=== PATIENT | male | born 1995 | race Caucasian/White ===

== ENCOUNTER 2017-03-14 02:01 | Emergency (ER) | payer SELFPAY ==
[~2017-03-14] VITALS: Ht 180.3 cm; Wt 92.1 kg
[~2017-03-14 02:01] MED LIST: HYDROCODON-ACE1 EAC7 PO; OXYCODONE-ACET1 EACH PO
[2017-03-14 02:50] VITALS: BP 128/84
== END 2017-03-14 02:50 | disposition home or self-care (01) ==
LOC: EME 02:01
DX: F10.129 Alcohol abuse with intoxication, unspecified (principal); F12.10 Cannabis abuse, uncomplicated; R00.2 Palpitations
CPT/HCPCS: 93005; 99281; 99284

== ENCOUNTER 2017-09-26 18:44 | Emergency (ER) | payer SELFPAY ==
[~2017-09-26] VITALS: Ht 180.3 cm; Wt 109.8 kg
[2017-09-26] MEDS ORDERED: AMOXICILLIN500 M1 PO (19:12)
[2017-09-26 19:27] VITALS: BP 129/92
== END 2017-09-26 19:28 | disposition home or self-care (01) ==
LOC: EME 18:44
DX: J02.0 Streptococcal pharyngitis (principal); F17.200 Nicotine dependence, unspecified, uncomplicated
CPT/HCPCS: 99281; 99284

== ENCOUNTER 2017-11-13 22:06 | Emergency (ER) | payer OTHER ==
[~2017-11-13] VITALS: Ht 180.3 cm; Wt 105.1 kg
[~2017-11-13 22:06] MED LIST changes: +AMOXICILLIN500 M1 PO
[2017-11-13 22:42] LABS: BASOPHIL (%) 0.4 % (0-1); BASOPHIL COUNT 0.1 K/uL (0-0.1); EOSINOPHIL (%) 0.2 % (0-5); HEMATOCRIT 49.9 % (38.0-50.0); HEMOGLOBIN 17.6 G/DL (12.5-16.6); IMMATURE GRANULOCYTE (%) 0.4 % (0.0-0.7); LYMPHOCYTE (%) 16.6 % (15-42); LYMPHOCYTE COUNT 2.7 K/uL (1.0-2.8); MCH 29.9 PG (29.0-34.0); MCHC 35.3 G/DL (30.0-36.0); MCV 84.9 FL (86-99); MONOCYTE (%) 3.9 % (3-12); MONOCYTE COUNT 0.6 K/uL (0-0.8); NEUTROPHIL (%) 78.5 % (45-76); NEUTROPHIL COUNT 12.6 K/uL (1.8-6.4); PLATELET COUNT 220 K/uL (156-360); RBC DIS.WIDTH-CV 13.4 % (11.8-14.6); RBC DIS.WIDTH-SD 41.8 % (39-53); RED BLOOD COUNT 5.88 M/uL (4.00-5.50); WHITE BLOOD COUNT 16.1 K/uL (4.1-10.2)
[2017-11-13 22:52] LABS: AMPHETAMINE NEGATIVE (500 ng/mL); BARBITURATES NEGATIVE (200 ng/mL); BENZODIAZEPINES NEGATIVE (150 ng/mL); BUPRENORPHINE NEGATIVE (10 ng/mL); COCAINE NEGATIVE (150 ng/mL); METHADONE NEGATIVE (200 ng/mL); METHAMPHETAMINE NEGATIVE (500 ng/mL); OPIATES (MORPHINE) NEGATIVE (100 ng/mL); OXYCODONE NEGATIVE (100 ng/mL); PHENCYCLIDINE NEGATIVE (25 ng/mL); PROPOXYPHENE NEGATIVE (300 ng/mL); THC CANNABINOIDS NEGATIVE (50 ng/mL); TRICYCLIC ANTIDEPRESSANTS NEGATIVE (300 ng/mL)
[2017-11-13 22:57] LABS: ALBUMIN 5.2 g/dL (3.2-4.8); CHLORIDE 105 mEq/L (99-109); POTASSIUM 4.2 mEq/L (3.7-5.4); SODIUM 139 mEq/L (136-147)
[2017-11-13 22:59] LABS: GLUCOSE 104 mg/dL (70-99)
[2017-11-13 23:01] LABS: TOTAL BILIRUBIN 0.5 mg/dL (0.0-1.0)
[2017-11-13 23:02] LABS: SERUM ETHYL ALCOHOL 35 mg/dL
[2017-11-13 23:03] LABS: ALKALINE PHOSPHATASE 83 IU/L (3-129); CREATININE 1.1 mg/dL (0.6-1.3); GFR ESTIMATE (CALCULATED) > 59 mL/min/ (58.99-99999)
[2017-11-13 23:04] LABS: AST (GOT) 29 IU/L (2-34); UREA NITROGEN (BUN) 14 mg/dL (9-23)
[2017-11-13 23:06] LABS: ALT (GPT) 66 IU/L (3-49)
[2017-11-13 23:58] VITALS: BP 138/89
== END 2017-11-13 23:59 | disposition home or self-care (01) ==
LOC: EME 22:06
PROVIDERS: Emergency Medicine
DX: F43.20 Adjustment disorder, unspecified (principal); F17.200 Nicotine dependence, unspecified, uncomplicated
CPT/HCPCS: 80053; 85025; 90839; 99281; 99285; G0480

== ENCOUNTER 2017-11-21 16:39 | Inpatient (IN) | payer OTHER ==
[~2017-11-21] VITALS: Ht 180.3 cm; Wt 105.0 kg
[2017-11-21 17:27] LABS: HEMATOCRIT 48.1 % (38.0-50.0); MCHC 35.3 G/DL (30.0-36.0); MCV 84.8 FL (86-99); PLATELET COUNT 227 K/uL (156-360); RBC DIS.WIDTH-CV 13.4 % (11.8-14.6); RBC DIS.WIDTH-SD 41.7 % (39-53); RED BLOOD COUNT 5.67 M/uL (4.00-5.50); WHITE BLOOD COUNT 11.4 K/uL (4.1-10.2)
[2017-11-21 17:32] LABS: APPEARANCE CLEAR ((CLEAR)); BILIRUBIN NEGATIVE; BLOOD NEGATIVE; COLOR YELLOW ((YELLOW)); GLUCOSE (STRIP) NEGATIVE; KETONES 80; LEUKOCYTES NEGATIVE; NITRITE NEGATIVE; PROTEIN (STRIP) 30; SPECIFIC GRAVITY 1.029 (1.000-1.030); UCUL ADDED? NO
[2017-11-21 17:38] LABS: ALBUMIN 5.2 g/dL (3.2-4.8); CHLORIDE 105 mEq/L (99-109); POTASSIUM 3.6 mEq/L (3.7-5.4); SODIUM 141 mEq/L (136-147)
[2017-11-21 17:40] LABS: GLUCOSE 95 mg/dL (70-99); TOTAL PROTEIN 7.8 g/dL (6.4-8.3)
[2017-11-21 17:42] LABS: AMPHETAMINE NEGATIVE (500 ng/mL); BARBITURATES NEGATIVE (200 ng/mL); BENZODIAZEPINES NEGATIVE (150 ng/mL); BUPRENORPHINE NEGATIVE (10 ng/mL); COCAINE NEGATIVE (150 ng/mL); METHADONE NEGATIVE (200 ng/mL); METHAMPHETAMINE NEGATIVE (500 ng/mL); OPIATES (MORPHINE) NEGATIVE (100 ng/mL); OXYCODONE NEGATIVE (100 ng/mL); PHENCYCLIDINE NEGATIVE (25 ng/mL); PROPOXYPHENE NEGATIVE (300 ng/mL); THC CANNABINOIDS NEGATIVE (50 ng/mL); TOTAL BILIRUBIN 0.8 mg/dL (0.0-1.0); TRICYCLIC ANTIDEPRESSANTS NEGATIVE (300 ng/mL)
[2017-11-21 17:43] LABS: SERUM ETHYL ALCOHOL < 10 mg/dL
[2017-11-21 17:44] LABS: ALKALINE PHOSPHATASE 75 IU/L (3-129); CREATININE 1.2 mg/dL (0.6-1.3); GFR ESTIMATE (CALCULATED) > 59 mL/min/ (58.99-99999)
[2017-11-21 17:45] LABS: UREA NITROGEN (BUN) 14 mg/dL (9-23)
[2017-11-21 17:46] LABS: AST (GOT) 19 IU/L (2-34)
[2017-11-21 17:47] LABS: ALT (GPT) 35 IU/L (3-49)
[2017-11-21] MEDS ORDERED: ALEVE220 MG PO (22:30)
[2017-11-22 00:55] VITALS: BP 137/89
[2017-11-22 07:55] VITALS: BP 127/78
== END 2017-11-22 11:37 | disposition home or self-care (01) | DRG 881 ==
LOC: EME 16:39 → EDOF 22:05 → ENRESERV 11-22 00:01 → 1WEST 11-22 00:46
PROVIDERS: Emergency Medicine
DX: F32.9 Major depressive disorder, single episode, unspecified (principal); F10.10 Alcohol abuse, uncomplicated; F17.200 Nicotine dependence, unspecified, uncomplicated
CPT/HCPCS: 80053; 81003; 85027; 90837; 97150 GO; 97165 GO; G0480